=== PATIENT | female | born 1975 | race American Indian/Alaskan Native ===

== ENCOUNTER 2017-09-20 08:30 | Emergency (ER) | payer MEDICARE ==
[2017-09-20 08:42] VITALS: BP 140/89
--- NOTE | 2017-09-20 11:38 | ED Elopement Review ---
ED Pt Elopement review - Results review Lab results: I went to examination room but patient was not there. I called CT, microbiological laboratory technician Henry stated the patient refused to go to diagnostic tests. I called patient at her listed cell phone number under patient demographics and chart. Patient answered the phone and stated that she left and was not interested in coming back. I advised her to follow up with primary care or to return to the ED for evaluation at her earliest convenience. - Call Back decision Pt Call Back Decision: Pt to F/U with PMD
== END 2017-09-20 11:20 | disposition left against medical advice (07) ==
LOC: ED 08:30
DX: Z53.21 Procedure and treatment not carried out due to patient leaving prior to being seen by health care provider (principal)